=== PATIENT | male | born 1995 | race Caucasian/White ===

== ENCOUNTER 2021-08-10 23:08 | Emergency (ER) | payer MEDICAID ==
[~2021-08-10] VITALS: Ht 185.4 cm; Wt 54.5 kg
[2021-08-10 23:32] VITALS: BP 118/64
== END 2021-08-11 00:01 ==
LOC: ER 23:10
DX: M54.6 Pain in thoracic spine (principal); M54.50 Low back pain, unspecified; M25.511 Pain in right shoulder; V43.52XA Car driver injured in collision with other type car in traffic accident, initial encounter; Y93.89 Activity, other specified; Y92.89 Other specified places as the place of occurrence of the external cause; Y99.8 Other external cause status
CPT/HCPCS: 99283